=== PATIENT | male | born 1950 | race Caucasian/White ===

== ENCOUNTER 2020-12-16 14:03 | Emergency (ER) | payer MEDICARE, SELFPAY ==
--- NOTE | ~2020-12-16 | XR_ITS ---
EXAMINATION: XR femur RT min 2V EXAM DATE: 12/16/2020 16:01 INDICATION: Right upper leg pain, fall 2 wks ago; post mid Rt femur pain. TECHNIQUE: Right femur frontal and lateral projections of the proximal aspect, frontal and lateral pr ojections of the lower aspect for review. There is no prior study for comparison. FINDINGS: There is moderate right hip and the primary osteoarthritis. No hip avascular necrosis. The re is meniscal cartilage calcification. Chondrocalcinosis can be an age related finding, but with oth er possible etiologies including CPPD, parathyroid disorders, hemochromatosis, gout. No appreciable knee joint effusion. There are no acute fractures identified. No radiopaque foreign jonny dies identified. The soft tissue is unremarkable. IMPRESSION: Moderate right knee and hip osteoarthritis. Chondrocalcinosis. Reviewed, dictated and finalized at location A.
[2020-12-16 14:16] VITALS: BP 112/64; PULSE 101; RESP 20; TEMP 36.4; O2SAT 100
--- NOTE | 2020-12-16 15:45 | ED.GENADULT ---
HPI - General Adult General Chief complaint: Unspecified Stated complaint: bilateral knee and shoulder pain Time Seen by Provider: 12/16/20 15:22 Source: patient Mode of arrival: ambulatory Limitations: no limitations History of Present Illness HPI narrative: This is a 70 year old male that presents to the ER for right upper leg pain x 2 weeks. Reports he feels like his is getting spasms/cramps in the leg. Reports a fall a couple weeks ago where he landed on the right leg. He was evaluated at an outside facility for this and has follow up in a couple weeks, but could no longer take the pain. Denies fever, chest pain, shortness of breath, or lower extremity edema or erythema. Related Data Allergies Allergy/AdvReac Type Severity Reaction Status Date / Time STEROIDS Allergy Uncoded 06/21/11 10:34 Review of Systems Review of Systems: Narrative: CONSTITUTIONAL: Denies fever MUSCULOSKELETAL: Reports myalgia. NEUROLOGIC: Denies numbness All systems reviewed & are unremarkable except as noted in HPI and below PMFSH Past Medical History Medical History (Updated 12/16/20 @ 17:30 by Brandi Duran PA-C) History of hypertension Social History Social History (Updated 12/16/20 @ 15:49 by Brandi Duran PA-C) Substance use: never Gender identity (if verbalized by the patient): Male Exam Narrative: Exam Narrative: GENERAL: Elderly, well-nourished, and in no acute distress. HEAD: Normocephalic, atraumatic. EYES: EOMI. CHEST: Clear to auscultation. No respiratory distress. No wheezes rales or rhonchi HEART: Regular rate and rhythm. No murmur heard. Normal peripheral pulses. EXTREMITIES: Normal range of motion. No edema, erythema or obvious deformity. Normal DP pulses. Normal sensation SKIN: Warm, dry, no rash. NEURO: No focal deficits. Alert and oriented x3. PSYCH: Normal mood and affect Course Vital Signs Vital signs: Vital Signs Temperature 97.6 F 12/16/20 14:16 Pulse Rate 101 H 12/16/20 14:16 Respiratory Rate 20 12/16/20 14:16 Blood Pressure 112/64 12/16/20 14:16 Pulse Oximetry 100 12/16/20 14:16 Temperature 97.6 F 12/16/20 14:16 Pulse Rate 89 12/16/20 17:05 Respiratory Rate 16 12/16/20 17:05 Blood Pressure 132/84 12/16/20 17:05 Pulse Oximetry 97 12/16/20 17:05 Medical Decision Making [facility] Narrative Medical decision making narrative: Patient presents the emergency department for right lower extremity pain present over the last couple weeks. Reports spasms of the muscles in his upper leg. He is afebrile and nontoxic-appearing. His vitals are stable. No concerning erythema or edema of the leg. He is afebrile and nontoxic-appearing. CBC does show mild leukocytosis to 12. Metabolic panel without concerning findings. Right femur x-ray shows osteoarthritis. Patient was updated on case findings. Reports improvement with Tylenol and Flexeril. His D-dimer was elevated, so he will be set up for ultrasound of his bilateral lower extremities tomorrow morning. Given dose of Lovenox in the ED tonight. He denies any chest pain or shortness of breath. Oxygen saturation is normal on room air. He is stable and felt appropriate for further outpatient evaluation. He was given warnings to return to the ER Vital Signs Vital Signs: Vital Signs Temperature 97.6 F 12/16/20 14:16 Pulse Rate 101 H 12/16/20 14:16 Respiratory Rate 20 12/16/20 14:16 Blood Pressure 112/64 12/16/20 14:16 Pulse Oximetry 100 12/16/20 14:16 Temperature 97.6 F 12/16/20 14:16 Pulse Rate 89 12/16/20 17:05 Respiratory Rate 16 12/16/20 17:05 Blood Pressure 132/84 12/16/20 17:05 Pulse Oximetry 97 12/16/20 17:05 Lab Data Lab results reviewed: Yes I reviewed the patient's lab results. Result diagrams: 12/16/20 16:10 12/16/20 16:10 Labs: Lab Results 12/16/20 12/16/20 12/16/20 Range/Units 16:10 16:10 16:10 WBC 12.0 H (4.5-10.0) K/mm3 RBC 4.21
[2020-12-16 16:24] LABS: Basophils Percent Auto 0.2 % (0.2-1.2); Eosinophils Absolute Auto 0.1 K/mm3 (0-0.3); Eosinophils Percent Auto 0.4 % (0-4.4); Hematocrit 37.3 % (42.0-52.0); Hemoglobin 12.2 g/dL (14.0-18.0); Immature Granulocyte Absolute 0.07 K/mm3 (0.00-0.031); Immature Granulocyte Percent A 0.6 % (0-0.5); Lymphocytes Absolute Auto 0.69 K/mm3 (0.9-3.2); Lymphocytes Percent Auto 5.8 % (18.3-44.2); Mean Corpuscular HGB Conc 32.7 g/dl (32-36); Mean Corpuscular Volume 88.6 fl (80-100); Mean Platelet Volume 10.8 fl (7.4-10.4); Monocytes Percent Auto 8.3 % (2.6-8.5); Neutrophils Absolute Auto 10.1 K/mm3 (1.3-6.7); Neutrophils Percent Auto 84.7 % (45.5-73.1); Platelet Count Result 345 k/mm3 (150-375); Red Blood Count 4.21 M/mm3 (4.6-6.20); Red Cell Distribution Width 12.7 % (11.5-14.5)
[2020-12-16] MEDS: ACETAMINOPHEN 500 MG TABLET 1000 MG PO (16:28)
[2020-12-16] MEDS: CYCLOBENZAPRINE HCL 10 MG TABLET PO (16:28)
[2020-12-16 16:35] LABS: Prothrombin Time 13.5 Seconds (11.1-14.7)
[2020-12-16 16:36] LABS: Anion Gap 6 mmol/L (8-16); Blood Urea Nitrogen 25 mg/dL (9-20); Calcium 9.1 mg/dL (8.4-10.2); Carbon Dioxide 33 mmol/L (22-30); Chloride 98 mmol/L (98-107); Estimated CRCL calculation 72 ml/min; Estimated Glomerular Filt Rate > 60; Glucose 110 mg/dL (75-110); Magnesium 1.9 mg/dL (1.6-2.3); Partial Thromboplastin Time 32.6 SECONDS (22.3-36.8); Potassium 3.7 mmol/L (3.4-5.0); Sodium 137 mmol/L (137-145)
[2020-12-16 16:38] LABS: D Dimer 2.96 ug/mL (<0.48)
[2020-12-16 17:05] VITALS: BP 132/84; PULSE 89; RESP 16; O2SAT 97
[2020-12-16] MEDS: ENOXAPARIN 100 MG/ML SYRINGE SUB-Q (18:20)
== END 2020-12-16 18:22 | disposition home or self-care (01) ==
PROVIDERS: Physician Assistant; Emergency Provider Emergency Medicine
DX: M62.838 Other muscle spasm (principal); M16.11 Unilateral primary osteoarthritis, right hip; I10 Essential (primary) hypertension; M17.11 Unilateral primary osteoarthritis, right knee; M11.251 Other chondrocalcinosis, right hip
CPT/HCPCS: 36415; 73552; 80048; 83735; 85025; 85380; 85610; 85730; 96372; 99283; A9270; J1650

== ENCOUNTER 2020-12-17 08:07 | Outpatient (CLI) | payer MEDICARE, SELFPAY ==
--- NOTE | ~2020-12-17 | US_ITS ---
EXAMINATION: US venous doppler LE EXAM DATE: 12/17/2020 08:51 INDICATION: Right leg pain, symptoms 2 weeks. Cramping and swelling. TECHNIQUE: Multiple grayscale, color flow and Doppler images of the lower extremity deep venous syste ms bilaterally were obtained and reviewed. There is no prior study for comparison. FINDINGS: Right side: The right common femoral, femoral and profunda veins demonstrate normal color flow, respi ratory variation, augmentation and compressibility. Compressibility, color flow confirmed within the right popliteal, posterior tibial, peroneal, and greater saphenous veins. There is a popliteal graciela a cystic mass likely Solorio's cyst measuring 3.4 x 1.8 x 6.7 cm. Left side: The left common femoral, femoral and profunda veins demonstrate normal color flow, respira tory variation, augmentation and compressibility. Compressibility, color flow confirmed within the l eft popliteal, posterior tibial, peroneal, and greater saphenous veins. IMPRESSION: 1. No lower extremity deep venous thrombosis bilaterally. 2. Moderate-sized right Solorio's cyst. Reviewed, dictated and finalized at location A.
== END 2020-12-17 08:08 | disposition home or self-care (01) ==
PROVIDERS: PCP Family Medicine; Visit Provider Emergency Medicine
DX: M79.661 Pain in right lower leg (principal); M71.21 Synovial cyst of popliteal space [Baker], right knee
CPT/HCPCS: 93970

== ENCOUNTER 2021-01-11 13:03 | Outpatient (NON) | payer MEDICARE, SELFPAY ==
[2021-01-11 16:02] LABS: Source Synovial Fluid Synovial fluid
[2021-01-11 16:03] LABS: Appearance Synovial Fluid Cloudy (Clear); Color Synovial Fluid Yellow (Colorless); Lymphocytes Synovial Fluid 5 %; Neutrophils Synovial Fluid 95 % (0-25); Nucleated Cell Synovial Fluid 10526 /uL (0-200); RBC Synovial Fluid 12227 /uL (0-0)
[2021-01-11 16:04] LABS: Crystals Synovial Fluid None Seen (None Seen)
== END 2021-01-11 13:04 | disposition home or self-care (01) ==
PROVIDERS: PCP Family Medicine; Visit Provider Orthopaedic Surgery
DX: M25.561 Pain in right knee (principal); M25.461 Effusion, right knee
CPT/HCPCS: 87070; 87075; 87205; 89051; 89060

== ENCOUNTER 2021-08-22 10:31 | Outpatient (CLI) | payer MEDICARE, SELFPAY ==
--- NOTE | ~2021-08-22 | XR_ITS ---
EXAMINATION:XR cervical spine 4-5V DATE: 08/22/2021 11:27 INDICATION: Delmy osteoarthritis TECHNIQUE: AP, lateral, lateral swimmers and odontoid views of the cervical spine are provided. COMPARISON: None FINDINGS: Alignment is normal. The odontoid is intact. No fracture is identified. The vertebral body heights are normal. There is mild loss of intervertebral disc space height at C5-6 and C6-7. Preverte bral soft tissues are normal. Small degenerative osteophytes project from the anterior endplates of m ultiple vertebral bodies. There is moderate to severe multilevel facet and uncovertebral joint osteoa rthritis. IMPRESSION: 1. Moderate cervical spondylosis without acute findings. Reviewed, dictated and finalized at location F. 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
--- NOTE | ~2021-08-22 | XR_ITS ---
EXAMINATION: HAND-RAYMUNDO ARTHRITIS 3+VIEWS DATE: 08/22/2021 11:27 INDICATION: Abnormal immunologic findings. Polyarticular osteoarthritis. TECHNIQUE: Posteroanterior, lateral, and oblique views of the left and of the right hands as well as a ballcatchers view of both hands were obtained. COMPARISON: None. FINDINGS: No fracture in either hand. There is asymmetric widening of the left scapholunate interval consistent with scapholunate ligament tear/insufficiency. Asymmetric severe osteoarthritis at the left radiosca phoid articulation with subarticular cystic change at the radial styloid process and moderate severit y at the left midcarpal joint consistent with scapholunate advanced collapse (SLAC) wrist secondary t o the scapholunate ligament insufficiency. Additional polyarticular osteoarthritis in the bilateral h ands and wrists, severe at the right and moderate to severe at the left first carpal metacarpal joint s, moderate severity at the right wrist and bilateral distal radioulnar, bilateral first metacarpopha langeal and multiple bilateral distal interphalangeal joints and mild at the bilateral triscaphe and remaining bilateral metacarpophalangeal and interphalangeal joints. No erosions to raise suspicion fo r an inflammatory arthritis such as rheumatoid. IMPRESSION: 1. 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 2. Otherwise relative symmetric pattern of moderate to severe polyarticular osteoarthritis at the raymundo ateral hands and wrists. Reviewed, dictated and finalized at location A. 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 2. Otherwise relative symmetric pattern of moderate to severe polyarticular ost eoarthritis at the bilateral hands and wrists.
--- NOTE | ~2021-08-22 | XR_ITS ---
XR foot RT standing 2V DATE: 08/22/2021 11:27 INDICATION: Right foot pain TECHNIQUE: Standing AP and lateral views COMPARISON: None FINDINGS: Pes planus. Prominent posterior calcaneal enthesopathy. Mild plantar calcaneal enthesopathy. There are calcificat ions along the plantar aponeurosis. There is polyarticular osteoarthritis including severe osteoarthritic change at the first metatarsoph alangeal joint, moderately severe osteoarthritic change at the fourth metatarsophalangeal joint, oste oarthritis at multiple interphalangeal joints. No erosive changes noted. No fracture, dislocation, periosteal reaction or bone destruction. IMPRESSION: Pes planus Calcaneal enthesopathy Calcification along plantar aponeurosis Polyarticular osteoarthritis Reviewed, dictated and finalized at location A. 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
--- NOTE | ~2021-08-22 | XR_ITS ---
XR foot LT standing 2V DATE: 08/22/2021 11:26 INDICATION: Immunological abnormality TECHNIQUE: Standing AP and lateral views COMPARISON: None FINDINGS: Pes planus. Prominent plantar and posterior calcaneal enthesopathy. Osteoarthritic change at the tibiotalar joint, first metatarsophalangeal joint and some of the interp halangeal joints. No fracture or dislocation, periosteal reaction or bone destruction. IMPRESSION: Pes planus Plantar and posterior calcaneal enthesopathy Osteoarthritis Reviewed, dictated and finalized at location A. 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
== END 2021-08-22 10:32 | disposition home or self-care (01) ==
PROVIDERS: PCP Family Medicine; Visit Provider Internal Medicine
DX: C61 Malignant neoplasm of prostate (principal); M15.9 Polyosteoarthritis, unspecified; R76.8 Other specified abnormal immunological findings in serum; Z71.89 Other specified counseling; Z79.899 Other long term (current) drug therapy; M47.892 Other spondylosis, cervical region; M77.31 Calcaneal spur, right foot; M19.071 Primary osteoarthritis, right ankle and foot; M19.072 Primary osteoarthritis, left ankle and foot; M77.32 Calcaneal spur, left foot
CPT/HCPCS: 72050; 73130; 73620

== ENCOUNTER 2023-12-10 08:33 | Outpatient (CLI) | payer MEDICARE, SELFPAY ==
[2023-12-10 09:19] LABS: Anion Gap 6 mmol/L (4-12); Blood Urea Nitrogen 25 mg/dL (9-20); Calcium 9.1 mg/dL (8.4-10.2); Carbon Dioxide 30 mmol/L (22-30); Chloride 107 mmol/L (98-107); Estimated Glomerular Filt Rate > 60; Glucose 163 mg/dL (65-110); Potassium 3.8 mmol/L (3.4-5.0); Sodium 143 mmol/L (137-145)
--- NOTE | 2023-12-10 09:30 | ECG_ITS ---
SEE SCANNED COPY FOR CONFIRMED REPORT MTDD
== END 2023-12-10 08:34 | disposition home or self-care (01) ==
LOC: ANHSURGERY 08:38
PROVIDERS: Anesthesiology; Visit Provider Surgery
DX: K40.90 Unilateral inguinal hernia, without obstruction or gangrene, not specified as recurrent (principal); I10 Essential (primary) hypertension; Z79.899 Other long term (current) drug therapy; Z01.818 Encounter for other preprocedural examination
CPT/HCPCS: 36415; 80048; 86850; 86900; 86901; 93005

== ENCOUNTER 2023-12-15 02:51 | Day surgery (SDC) | payer MEDICARE, SELFPAY ==
[2023-12-09 08:17] VITALS: BMI 20.9
--- NOTE | 2023-12-09 08:25 | PC.NURSE ---
Addendum entered by Lisy Dent RN 12/10/23 11:28: Pt notified to follow instructions from Dr. Burden regarding Celebrex. Pt verbalized understanding to NOT take day of surgery. Original Note: PRE-OP INSTRUCTIONS, PLEASE READ CAREFULLY Report to the Outpatient Waiting Room, entrance under the green pavilion located off [facility], at time _1130_ on date _12/15/23_. Planned Procedure Time: _1:30 PM_. Time changes happen often and if your time is changed the preop area will call you the afternoon before. - You and your visitor will be asked to self-screen and do not enter if you have any COVID symptoms. - A mask is optional within the hospital at this time. Patients may have clear liquids (water, carbonated beverages, clear teas, apple juice) until 3 hours prior to surgery (1030 AM) with a maximum of 20 ounces. - No food from midnight until time of surgery Take the following medications with a SIP of water the morning of surgery: _CELECOXIB & MUSCLE RELAXANT IF NEEDED_ DO NOT STOP ANY OF YOUR OTHER PRESCRIPTION MEDICATIONS PRIOR TO SURGERY ?EXCEPT THE FOLLOWING Medications to discontinue per physician ____N/A____, Date to take last dose Please no make-up, nail macedonian, hairspray, perfume, deodorant, or body powder the day of surgery. No jewelry (including any body piercings) or valuables the day of surgery, leave them at home. Please take a shower or bath the night before, or the morning of, surgery with an antibacterial soap. Wear comfortable, loose fitting clothing. - Jewelry must be removed prior to entering the operating room. Rings and piercings that are not removed may be cut off. - The hospital will not accept responsibility for valuables. - Please leave all valuables, including medications, at home the day of surgery. If you are going home after surgery, a licensed frontload driver must drive you home. - NO public transportation without another adult if you receive anesthesia. - We recommend that an adult stay with you for 24 hours following discharge. - We also recommend that you do not drive, make important decision, drink alcoholic beverages, or take any drugs that were not prescribed by your health care provider for at least 24 hours after your discharge time. Follow any additional instructions given to you from your surgeon. If you or anyone in your household have experienced Covid symptoms in the past week, please notify your surgeon or the nurse liaison at the phone number below for possible testing. Telephone instructions given to _PATIENT_and asked if any additional questions and then verbalized understanding. Patient advised to call surgeon office or pre surgery nurse liaison [phone] if any additional questions.
[2023-12-15] VITALS (7 sets, daily range): BP systolic 137–177; BP diastolic 67–88; PULSE 76–83; RESP 10–18; TEMP 36.2; O2SAT 97–100
[2023-12-15] MEDS: KETOROLAC 15 MG/ML VIAL (*BKC) IV PUSH (11:11)
[2023-12-15] MEDS: ACETAMINOPHEN 500 MG TABLET 1000 MG PO (11:11)
--- NOTE | 2023-12-15 12:23 | P.PNAN_ITS ---
Anes - Initial Pre Proc Eval Procedure: Operation Date: 12/15/23 12:30 Proposed Procedures p Robotic Right Inguinal Hernia Repair with Mesh - Ana Burden MD Date/Time: 12/15/23 12:23 Surgeon: Ana Burden MD Pre Op Diagnosis: Rt Ing Hernia Patient Data Age: 73 Gender: M Height: 1.8 m Weight: 118.2 kg Last Vital Signs Temp 97.1 F L 12/15/23 10:47 Pulse 78 12/15/23 10:47 Resp 18 12/15/23 10:47 BP 149/67 H 12/15/23 10:47 Pulse Ox 98 12/15/23 10:47 O2 Del Method Room Air 12/15/23 10:47 Allergies Allergy/AdvReac Type Severity Reaction Status Date / Time STEROIDS Allergy Intermediate RED/FLUSHED Uncoded 12/09/23 08:14 SKIN Home Medications Medication Instructions Recorded Confirmed Type hydrochlorothiazide 12.5 mg tablet 12.5 mg PO DAILY 08/22/21 12/09/23 History amlodipine 10 mg tablet 10 mg PO DAILY 10/31/21 12/09/23 History celecoxib 200 mg capsule 200 mg PO DAILY #90 caps 10/31/21 12/09/23 Rx methocarbamol 750 mg tablet 750 mg PO TID PRN MUSCLE SPAMS 10/31/21 12/09/23 History tizanidine 4 mg tablet 4 mg PO BID PRN muscle spasticity 10/27/22 12/09/23 Rx #60 tabs Patient hx anesthesia problems: none Family hx anesthesia problems: none Results Review: All pre-operative results and documents have been reviewed as part of the pre- operative evaluation. [facility] Past Medical History Medical History JOAN positive Generalized osteoarthritis of multiple sites History of hypertension Myalgia Prostate cancer Social History Social History Smoking status: Never smoker Second hand tobacco smoke exposure: No Alcohol intake: never Substance use: never Substance use type: does not use Do You Feel Safe in your Home?: Yes Lack of Transportation: No Lack of Food: Never True Current Housing: I Have Housing Concerned About Future Housing: No Difficulty Paying Gas/Electric Bills: YES Difficulty Paying for Meds: No Currently Unemployed: No Education: High School Diploma/GED Difficulty w/ Childcare or Family Care: No Living arrangements: with family Additional living arrangements comments: GRANDDAUGHTER LIVES WITH PT Gender identity (if verbalized by the patient): Male Spiritual care concerns: No Anes - Eval Final PreProcedure Day of Procedure 12/15/23 12:23 Patient weight: morbidly obese Heart: regular rate and rhythm Lungs: clear to auscultation Airway: Mallampati scale class II and special considerations (Edentulous. ) Neurological: alert and oriented Last oral intake: >/= 8 hours ASA classification: II Emergent: no Anesthetic plan: proceed Anesthesia type and monitoring: general ETT and standard monitoring Results Review: All pre-operative results and documents have been reviewed as part of the pre- operative evaluation. 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 Informed Consent: The patient's anesthetic plan and its attendant risks and benefits were discussed with the patient/family/POA. Questions were solicited and answers provided to the satisfaction of the patient/family/POA.
--- NOTE | 2023-12-15 12:41 | WPDHPUPDATE1 ---
History and Physical Update Update Date/Time: 12/15/23 12:41 History and Physical has been reviewed, including an updated exam of the patient. There are NO changes in the patient's condition. Risks, benefits, and alternatives have been discussed and questions answered. Patient agrees to proceed with procedure.
[2023-12-15] MEDS: ceFAZolin 2 GM/D5W 50 ML 2 GM/50 ML BAG IVPB (13:02)
[2023-12-15] MEDS: BUPIVACAINE/EPINEPHRINE 0.5% 10 ML VIAL 30 ML INFILTRATE (13:30)
[2023-12-15] MEDS: LACTATED RINGERS 1,000 ML 30 ML IV CONT (14:35)
--- NOTE | 2023-12-15 14:48 | P.OP_ITS ---
Procedure Note - Detailed Date of Procedure 12/15/23 Pre-op Diagnosis Right inguinal hernia Post-op Diagnosis Other ( incarcerated right inguinal hernia with noted cecum and appendix) Procedure Performed robotic assisted repair incarcerated right inguinal hernia with mesh Surgeon Ana Burden MD Anesthesia General Indications 73-year-old male presenting to the office with a large right inguinal hernia. Findings incarcerated indirect right inguinal hernia with noted cecum and appendix within the incarceration Description of Procedure Patient was brought into the operating room and placed in the supine position. After adequate induction of general anesthesia, the patient was prepped and draped in normal sterile fashion. A time-out was then done to verify the patient's identity, as well as the procedure being performed. Began by making a 8 mm incision in the supraumbilical region, a Veress needle was then placed into the peritoneal cavity. CO2 gas was then insufflated and after adequate pneum operitoneum was achieved, the Veress needle was removed. I then placed an 8 mm trocar through this incision. I then placed the endoscope through this trocar site and under direct visualization placed 2 further 8 mm ports in the right and left mid abdomen. The Senior [employer] robot was then docked to the 3 trocar sites. I then scrubbed out and went to the robotic console. Upon examining the pelvis, it was noted that the patient had a large right inguinal hernia. The left side was examined and no hernia defect was noted. The right-sided hernia was noted to contain the cecum as well as the appendix. Using very gentle traction, I was able to reduce the contents of the hernia. I then examined the incarcerated tissue which was noted to be viable and pathology free. I then began by making a preperitoneal flap approximately 6 cm superior to the defect. This flap was carried medially past the umbilical ligaments in laterally to the transversalis. It then began dissection of my medial compartment taking this down to the pubic tubercle. I then began the lateral dissection taking this down to the transversalis fascia. Once these compartments were achieved, I began dissection around the cord structures. A large indirect hernia was noted at this point. Using careful dissection, was able to reduce indirect hernia sac off the cord structures. Once this was adequately done, I went ahead and placed a large piece of 3D Max mesh into the abdominal cavity. The mesh was carefully positioned, centering the center of the mesh over the indirect defect. Once this was done, was very satisfied with our repair. Using 3-0 Vicryl sutures, I tacked the mesh medially to Mauricio's ligament. Two lateral sutures were placed from the mesh to the transversalis fascia. I then closed the peritoneal flap with a running 2.0 V Lock suture. The abdomen was then desufflated, and all ports were removed. All incisions were then closed with the 4.0 monocryl suture. Dermabond was placed on each wound. The patient tolerated the procedure well, was extubated in the operating room postoperatively, and will now be transferred to the recovery room in stable condition. Implants large 3DMax mesh Estimated Blood Loss 10 Drains No Packing No Pathology None sent Complications No immediate complications Condition Stable Disposition PACU [facility] Billing Surgery - Charge Forward: Surgery Billing
[2023-12-15] MEDS: oxyCODONE HCL (*CRX) 5 MG TAB IR PO (15:47)
== END 2023-12-15 16:17 | disposition home or self-care (01) ==
PROVIDERS: PCP Internal Medicine; Visit Provider Surgery
PROC: 8E0Y4CZ Robotic Assisted Procedure of Lower Extremity, Percutaneous Endoscopic Approach (ICD-10-PCS; CPT 49650; principal; 2023-12-15 12:30)
DX: K40.30 Unilateral inguinal hernia, with obstruction, without gangrene, not specified as recurrent (principal); I10 Essential (primary) hypertension; Z85.46 Personal history of malignant neoplasm of prostate; R76.0 Raised antibody titer; M15.9 Polyosteoarthritis, unspecified; E66.9 Obesity, unspecified; Z68.36 Body mass index [BMI] 36.0-36.9, adult
CPT/HCPCS: 49650; S2900; 36415; 80048; 86850; 86900; 86901; 93005; A9270; C1781; J0690; J1100; J1885; J2405; J2704; J3010; J7030; J7120